=== PATIENT | male | born 1975 | race Caucasian/White ===

== ENCOUNTER 2018-07-14 02:11 | Emergency (ER) | payer BC ==
[~2018-07-14] VITALS: Ht 182.9 cm; Wt 108.0 kg
[2018-07-14 02:23] VITALS: Ht 182.9 cm; Wt 108.0 kg
[2018-07-14] MEDS ORDERED: SOD CHLORIDE 0.9% 100 ML ONE (03:00)
[2018-07-14] MEDS ORDERED: IOHEXOL 300MG/ML 150 ML BTL ONE (03:00)
[2018-07-14] MEDS ORDERED: MEVA40 PO (03:25)
[2018-07-14] MEDS ORDERED: LOVA20TA PO (03:25)
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
[2018-07-14 05:17] VITALS: BP 134/100; PULSE 65; RESP 12
== END 2018-07-14 05:19 | disposition home or self-care (01) ==
LOC: E/R 02:11
DX: S10.93XA Contusion of unspecified part of neck, initial encounter (principal); R40.2142 Coma scale, eyes open, spontaneous, at arrival to emergency department; R40.2362 Coma scale, best motor response, obeys commands, at arrival to emergency department; R40.2252 Coma scale, best verbal response, oriented, at arrival to emergency department; S20.219A Contusion of unspecified front wall of thorax, initial encounter; I10 Essential (primary) hypertension; V43.92XA Unspecified car occupant injured in collision with other type car in traffic accident, initial encounter
CPT/HCPCS: 70498; 71045; 99284; Q9967